=== PATIENT | male | born 1940 | race Caucasian/White ===

== ENCOUNTER 2017-12-31 17:57 | Emergency (ER) | payer MEDICARE ==
[~2017-12-31] VITALS: Ht 182.9 cm; Wt 110.0 kg
[2017-12-31] MEDS ORDERED: RAPAFLO8 MG PO (18:35)
[2017-12-31] MEDS ORDERED: LOSARTAN/HCT1 TA2 PO (18:36)
[2017-12-31] MEDS ORDERED: COREG3.125 MG PO (18:36)
[2017-12-31] MEDS ORDERED: ATORVASTATIN CA10 MG PO (18:37)
[2017-12-31] MEDS ORDERED: TRAZODONE50 MG PO (18:37)
[2017-12-31] MEDS ORDERED: ALPRAZOLAM1 M1 PO (18:38)
[2017-12-31] MEDS ORDERED: HYDROCO/APAP1 T13 PO (18:39)
[2017-12-31 18:59] LABS: URINE BILIRUBIN - DIPSTICK NEGATIVE (NEGATIVE); URINE BLOOD DIPSTICK NEGATIVE (NEGATIVE); URINE COLOR YELLOW; URINE GLUCOSE - DIPSTICK NEGATIVE (NEGATIVE); URINE KETONE NEGATIVE (NEGATIVE); URINE LEUK ESTERASE NEGATIVE (NEGATIVE); URINE NITRITE - DIPSTICK NEGATIVE (Negative); URINE PROTEIN - DIPSTICK 30 mg/dL (NEG-TRACE); URINE UROBILINOGEN - DIPSTICK 0.2 E.U./dL (0.2)
[2017-12-31 19:00] LABS: URINE CLARITY SL CLOUDY; URINE EPITHELIAL CELLS RARE EPI/hpf (0-FEW); URINE MUCUS MODERATE hpf (NONE-FEW)
[2017-12-31 19:36] LABS: HEMATOCRIT 41.4 % (39.0-50.0); HEMOGLOBIN 14.2 g/dl (14.0-18.0); IMMATURE GRANULOCYTES 0.4 % (0.0-1.0); MEAN CELL VOLUME 92.8 fL CALC (80.0-100.0); MEAN CORPUSCULAR HGB 31.8 pG CALC (26.0-32.0); MEAN CORPUSCULAR HGB CONC 34.3 g/L CALC (32.0-36.0); NEUT# 9.05 thou/uL (1.82-7.42); RED BLOOD COUNT 4.46 mill/uL (4.70-6.10); RED CELL DISTRI WIDTH 13.8 % (11.5-15.5)
[2017-12-31 19:47] LABS: INFLUENZA A NONE DETECTED (NONE DETECT); INFLUENZA B NONE DETECTED (NONE DETECT)
[2017-12-31 19:48] LABS: ALBUMIN 4.4 g/dL (3.2-5.0); ALKALINE PHOSPHATASE 80 u/l (38-126); ANION GAP 17 (6-22 (CALC)); BILIRUBIN, TOTAL 1.1 mg/dL (0.0-1.4); BUN 17 mg/dL (8-23); BUN/CREATININE RATIO 13 (12-20 (CALC)); CARBON DIOXIDE 25 mmol/l (22-30); CHLORIDE 98 mmol/l (95-108); CREATININE 1.3 mg/dL (0.7-1.3); GFR 54 ML/MIN (>=60 (CALC)); GFR FOR AFR.AMER. > 60 ML/MIN (>=60 (CALC)); POTASSIUM 3.9 mmol/l (3.5-5.1); SGOT/AST 22 u/l (19-48); SGPT/ALT 25 u/l (11-66); TOTAL PROTEIN 7.9 g/dL (6.3-8.2)
[2017-12-31 19:51] LABS: SODIUM 136 mmol/l (137-146)
[2017-12-31] MEDS ORDERED: CIPROFLOXACN500 MG PO (20:17)
[2017-12-31 20:28] VITALS: BP 149/81
== END 2017-12-31 20:37 | disposition home or self-care (01) ==
LOC: ED 17:57
PROVIDERS: Emergency Medicine
DX: N30.90 Cystitis, unspecified without hematuria (principal); I10 Essential (primary) hypertension; J44.9 Chronic obstructive pulmonary disease, unspecified; I25.2 Old myocardial infarction; Z85.51 Personal history of malignant neoplasm of bladder

== ENCOUNTER 2019-05-17 08:01 | Emergency (ER) | payer MEDICARE ==
[~2019-05-17] VITALS: Ht 182.9 cm; Wt 111.0 kg
[~2019-05-17 08:01] MED LIST: ALPRAZOLAM1 M1 PO; ATORVASTATIN CA10 MG PO; CIPROFLOXACN500 MG PO; COREG3.125 MG PO; HYDROCO/APAP1 T13 PO; LOSARTAN/HCT1 TA2 PO; RAPAFLO8 MG PO; TRAZODONE50 MG PO
[2019-05-17] MEDS ORDERED: PREDNISONE5 MG PO (08:13)
[2019-05-17] MEDS ORDERED: OMEPRAZOLE DR40 MG PO (08:14)
[2019-05-17 09:43] LABS: ALBUMIN 4.2 g/dL (3.2-5.0); ALKALINE PHOSPHATASE 75 u/l (38-126); ANION GAP 15 (6-22 (CALC)); BILIRUBIN, TOTAL 0.8 mg/dL (0.0-1.4); BUN 16 mg/dL (8-23); BUN/CREATININE RATIO 13 (12-20 (CALC)); CARBON DIOXIDE 27 mmol/l (22-30); CHLORIDE 99 mmol/l (95-108); CREATININE 1.3 mg/dL (0.7-1.3); GFR 54 ML/MIN (>=60 (CALC)); GFR FOR AFR.AMER. > 60 ML/MIN (>=60 (CALC)); LIPASE 264 u/l (23-300); POTASSIUM 3.9 mmol/l (3.5-5.1); SGOT/AST 18 u/l (19-48); SODIUM 137 mmol/l (137-146); TOTAL PROTEIN 7.3 g/dL (6.3-8.2)
[2019-05-17 09:45] LABS: URINE BILIRUBIN - DIPSTICK NEGATIVE (NEGATIVE); URINE BLOOD DIPSTICK NEGATIVE (NEGATIVE); URINE COLOR YELLOW; URINE GLUCOSE - DIPSTICK NEGATIVE (NEGATIVE); URINE KETONE NEGATIVE (NEGATIVE); URINE LEUK ESTERASE NEGATIVE (NEGATIVE); URINE NITRITE - DIPSTICK NEGATIVE (Negative); URINE PROTEIN - DIPSTICK NEGATIVE (NEG-TRACE); URINE UROBILINOGEN - DIPSTICK 0.2 E.U./dL (0.2)
[2019-05-17 10:05] LABS: HEMATOCRIT 42.5 % (39.0-50.0); IMMATURE GRANULOCYTES 0.4 % (0.0-5.0); MEAN CELL VOLUME 95.5 fL CALC (80.0-100.0); MEAN CORPUSCULAR HGB 31.5 pG CALC (26.0-32.0); MEAN CORPUSCULAR HGB CONC 32.9 g/L CALC (32.0-36.0); NEUT# 7.03 thou/uL (1.82-7.42); RED BLOOD COUNT 4.45 mill/uL (4.70-6.10); RED CELL DISTRI WIDTH 13.9 % (11.5-15.5)
[2019-05-17 11:40] VITALS: BP 131/68
== END 2019-05-17 11:40 | disposition home or self-care (01) ==
LOC: ED 08:01
PROVIDERS: Family Medicine
DX: K52.9 Noninfective gastroenteritis and colitis, unspecified (principal); R10.31 Right lower quadrant pain; I10 Essential (primary) hypertension
CPT/HCPCS: Q9967

== ENCOUNTER 2020-11-19 15:17 | Emergency (ER) | payer MEDICARE ==
[~2020-11-19] VITALS: Ht 182.9 cm; Wt 113.6 kg
[~2020-11-19 15:17] MED LIST changes: +ALBUTEROL SUL0.083 % IN; +ALLEGRA180 MG PO; +ANORO ELLIPTA 61 AER IN; +ASPIRIN81 MG PO; +CIALIS5 MG PO; +HYDROCHLOROT12.5 MG PO; +LORTAB 1010 MG PO; +METAMUCIL1.7 G1 PO; +MUCINEX600 MG PO; +OMEPRAZOLE DR40 MG PO; +PREDNISONE5 MG PO
[2020-11-19 15:53] LABS: URINE BILIRUBIN - DIPSTICK NEGATIVE (NEGATIVE); URINE BLOOD DIPSTICK NEGATIVE (NEGATIVE); URINE COLOR YELLOW; URINE GLUCOSE - DIPSTICK NEGATIVE (NEGATIVE); URINE KETONE NEGATIVE (NEGATIVE); URINE LEUK ESTERASE TRACE (NEGATIVE); URINE PH 6.5 (4.5-8.0); URINE PROTEIN - DIPSTICK NEGATIVE (NEG-TRACE); URINE UROBILINOGEN - DIPSTICK 0.2 E.U./dL (0.2)
[2020-11-19 15:55] LABS: URINE NITRITE - DIPSTICK NEGATIVE (Negative)
[2020-11-19 16:29] LABS: ALBUMIN 4.2 g/dL (3.2-5.0); BILIRUBIN, TOTAL 0.7 mg/dL (0.0-1.4); CREATININE 1.4 mg/dL (0.7-1.3); TOTAL PROTEIN 8.2 g/dL (6.3-8.2)
[2020-11-19 16:42] LABS: HEMATOCRIT 38.3 % (39.0-50.0); HEMOGLOBIN 12.4 g/dl (14.0-18.0); IMMATURE GRANULOCYTES 0.1 % (0.0-5.0); MEAN CELL VOLUME 90.8 fL CALC (80.0-100.0); MEAN CORPUSCULAR HGB 29.4 pG CALC (26.0-32.0); MEAN CORPUSCULAR HGB CONC 32.4 g/dL CAL (32.0-36.0); NEUT# 4.47 thou/uL (1.82-7.42); RED BLOOD COUNT 4.22 mill/uL (4.70-6.10); RED CELL DISTRI WIDTH 14.6 % (11.5-15.5)
[2020-11-19 16:59] LABS: ACT PARTIAL THROMBO TIME 27.6 SECONDS (20.0-32.5); PROTHROMBIN TIME 10.3 SECONDS (9.0-12.5)
[2020-11-19 19:00] VITALS: BP 121/76
== END 2020-11-19 19:10 | disposition home or self-care (01) ==
LOC: ED 15:17
DX: K80.20 Calculus of gallbladder without cholecystitis without obstruction (principal); K76.89 Other specified diseases of liver; K59.00 Constipation, unspecified; K42.9 Umbilical hernia without obstruction or gangrene; I10 Essential (primary) hypertension; J44.9 Chronic obstructive pulmonary disease, unspecified; G62.9 Polyneuropathy, unspecified; Z85.51 Personal history of malignant neoplasm of bladder

== ENCOUNTER 2020-12-29 16:32 | Emergency (ER) | payer MEDICARE ==
[~2020-12-29] VITALS: Ht 182.9 cm; Wt 105.0 kg
[2020-12-29] MEDS ORDERED: MEDDOSEPAK PO (19:11)
[2020-12-29] MEDS ORDERED: AZITHROMYCIN500 MG PO (19:11)
[2020-12-29 19:16] VITALS: BP 155/97
== END 2020-12-29 19:25 | disposition home or self-care (01) ==
LOC: ED 16:32
DX: J06.9 Acute upper respiratory infection, unspecified (principal); J44.9 Chronic obstructive pulmonary disease, unspecified; I10 Essential (primary) hypertension; G62.9 Polyneuropathy, unspecified; Z20.822 Contact with and (suspected) exposure to COVID-19

== ENCOUNTER 2021-01-01 22:37 | Inpatient (IN) | payer MEDICARE ==
[~2021-01-01] VITALS: Ht 182.9 cm; Wt 104.0 kg
[~2021-01-01 22:37] MED LIST changes: +AZITHROMYCIN500 MG PO; +MEDDOSEPAK PO
--- NOTE | 2021-01-01 22:40 | NUR ---
BY EMS TO ROOM
[2021-01-01 22:54] LABS: HEMATOCRIT 40.1 % (39.0-50.0); HEMOGLOBIN 13.5 g/dl (14.0-18.0); IMMATURE GRANULOCYTES 0.5 % (0.0-5.0); MEAN CELL VOLUME 89.3 fL CALC (80.0-100.0); MEAN CORPUSCULAR HGB 30.1 pG CALC (26.0-32.0); MEAN CORPUSCULAR HGB CONC 33.7 g/dL CAL (32.0-36.0); NEUT# 4.33 thou/uL (1.82-7.42); RED BLOOD COUNT 4.49 mill/uL (4.70-6.10); RED CELL DISTRI WIDTH 14.8 % (11.5-15.5)
--- NOTE | 2021-01-01 23:07 | NUR ---
BREATHING TREATMENT GIVEN BACK TO BACK.
[2021-01-01 23:08] LABS: D-DIMER 2.94 mg/L (0.19-0.60)
[2021-01-01 23:22] LABS: ALBUMIN 4.1 g/dL (3.2-5.0); BILIRUBIN, TOTAL 0.5 mg/dL (0.0-1.4); CREATININE 1.4 mg/dL (0.7-1.3); POTASSIUM 3.2 mmol/l (3.5-5.1); TOTAL PROTEIN 7.6 g/dL (6.3-8.2)
--- NOTE | 2021-01-01 23:40 | NUR ---
AWAITING TEST RESULTS. NAD
[2021-01-02] VITALS (7 sets, daily range): BP systolic 117–162; BP diastolic 68–92
--- NOTE | 2021-01-02 00:30 | NUR ---
REQUESTED JOLANTA FOR RETENTION PER PT.
--- NOTE | 2021-01-02 00:54 | NUR ---
TOLERATED CATH PLACEMENT WELL.
--- NOTE | 2021-01-02 01:28 | NUR ---
RESTING QUIETLY AWAITING CT RESULTS.
--- NOTE | 2021-01-02 02:20 | NUR ---
TELEPHONE REPORT RECEIVED AT 0220 FROM Chet HERNANDEZ RN IN ED. ROOM 278 PREPARED TO RECEIVE PT.
--- NOTE | 2021-01-02 02:30 | NUR ---
Admission Note Report Given to: ROSS PATRICIO Transported by: Wheelchair X Stretcher Transported with: X Nurse Transporter XX Patent IV X O2 Wheel Setter Location: ICU X MS2
--- NOTE | 2021-01-02 02:30 | NUR ---
PT ARRIVES TO UNIT @ 0230 VIA STRETCHER ACCOMPANIED BY Chet HERNANDEZ RN. PT TO ROOM 278. AMBULATORY FROM STRETCHER TO BED.
--- NOTE | 2021-01-02 03:05 | NUR ---
PT UP TO BSC. FRONT OF GOWN WET. REPORTS STOVER IS LEAKING. NO ACTIVE LEAKING NOTED. TUBING SECURED, UNKINKED AND UNOBSTRUCED, DRAINING TO GRAVITY. WILL CON'T TO MONITOR.
--- NOTE | 2021-01-02 03:12 | NUR ---
PT BACK TO BED W/ STAND BY ASSIST FROM Lilo HONG. CLEAN GOWN APPLIED. ADULT BRIEF APPLIED TO BETTER MONITOR ANY POSSIBLE URINARY LEAKS. PT STATES "USUALLY WHEN I HAVE A STOVER I HAVE SPASMS IF I DON'T TAKE AN ANTI-CHOLINERGIC"
--- NOTE | 2021-01-02 07:23 | NUR ---
PT Humaira MIRANDA. VSS. LAYING IN BED. PROJECT FINANCIAL ANALYST TO MONITOR.
--- NOTE | 2021-01-02 07:27 | NUR ---
PT note Patient is screened for intervention and no needs are identified at this time
--- NOTE | 2021-01-02 07:50 | NUR ---
PT LAYING IN BED.ALERT AND ORIENTED. VITALS AND ASSESSMENT DONE. IV PATENT. PEDAL PULSES STRONG BILATERALY. O2 ON 2L AT HOME NOW AT 3L AND SUSTAINING. LUNG SOUNDS, WHEEZES THROUGHOUT LUNG BASES. NO DISTRESS NOTED. CALL LIGHT WITHIN REACH.
[2021-01-02 08:11] LABS: ANION GAP 16 (6-22 (CALC)); BUN 23 mg/dL (8-23); BUN/CREATININE RATIO 19 (12-20 (CALC)); CARBON DIOXIDE 22 mmol/l (22-30); CHLORIDE 96 mmol/l (95-108); CREATININE 1.2 mg/dL (0.7-1.3); GFR 59 ML/MIN (>=60 (CALC)); GFR FOR AFR.AMER. > 60 ML/MIN (>=60 (CALC)); POTASSIUM 3.3 mmol/l (3.5-5.1); SODIUM 131 mmol/l (137-146)
--- NOTE | 2021-01-02 09:20 | NUR ---
Yazan TIWARI APRN AND DR WALLACE AT BEDSIDE DISCUSSING POC
--- NOTE | 2021-01-02 11:20 | NUR ---
SPUTUM SAMPLE OBTAINED. SPECIMEN LABELED WITH THIS WRITERS INITIAL, DATE TIME AND SAMPLE SOURCE.
--- NOTE | 2021-01-02 11:20 | NUR ---
SPINNING MACHINE OPERATOR AT BEDSIDE OBTAINING SCHEDULED ECHO
--- NOTE | 2021-01-02 12:00 | NUR ---
PATIENT AWAKE IN BED. NO DISTRESS NOTED. CALL LIGHT WITHIN REACH.
--- NOTE | 2021-01-02 14:40 | NUR ---
PT REFUSED HOME MEDICATIONS. SAID HE WILL TAKE THEM IN THE MORNING, WHEN HE USUALLY TAKES THEM.
--- NOTE | 2021-01-02 16:00 | NUR ---
PT IN BED. NO DISTRESS NOTED. CALL LIGHT WITHIN REACH.
--- NOTE | 2021-01-02 18:26 | NUR ---
EDUCATED PATIENT ON THE IMPORTANCE OF THE CHANGE OF IV. PATIENT REFUSED AT THIS TIME.
--- NOTE | 2021-01-02 19:00 | NUR ---
REPORT RECEIVED FROM Ludin SOARES RN, CARE OF PT ASSUMED AT THIS TIME.
--- NOTE | 2021-01-02 20:00 | NUR ---
POINT OF CARE GLUCOSE 208mg/dl. COLLECTED BY Enrrique SANDERS CNA.
--- NOTE | 2021-01-02 20:15 | NUR ---
PT LAYING IN BED, NO APPARENT DISTRESS. PHYSICAL ASSESMENT COMPLTED, SEE SHIFT ASSESMENT. PT IS A/OX3 AND AFFECT IS DEPRESSED/ANXIOUS. DENIES THOUGHTS OF SELF-HARM BUT ADMITS TO FINDING LITTLE PLEASURE IN LIFE WITH CURRENT RECENT ILLNESSES. SAT AT BEDSIDE AND ALLOWED PT TIME TO VERBALLY EXPRESS HIS FEELINGS FOR APPROXIMATELY 20 MINUTES. RESPIRATIONS REGULAR AND UNLABORED, LUNG SOUNDS WHEEZY WITH DIMINISHED BASES. SPO2 92% ON 02 @ 3L/MIN VIA NC. REPORTS COUGH IS STILL PRESENT. IS AT BEDSIDE, PULMONARY HYGIENE REVIEWED AND ENCOURAGED. R-FA 18G EMS SITE PATENT, PT ADVISED IT IS DUE TO CHANGE TODAY. PT DECLINES, STATES "IM A HARD STICK AND THIS IS THE BEST IV RAYO HAD SINCE I HAD A CENTRAL LINE." STOVER DRAINING CLEAR YELLOW URINE TO GRAVITY. TUBING SECURED, UNKINKED, AND UNOBSTRUCTED. PT DENIES NEEDS AT THIS TIME. PLAN OF CARE REVIEWED WITH PT. PT VERBALIZES UNDERSTANDING. CALL CONNORS WITHIN REACH, AGREES TO CALL PRN .
--- NOTE | 2021-01-02 21:26 | NUR ---
VERBAL EDUCATION PROVIDED ON MEDICATIONS PRIOR TO ADMINISTRATION. PT VERBALIZES UNDERSTANDING. SCHEDULED MEDICATIONS ADMINISTERED. PRN XANAX AND PRN HYDROCODONE ADMINISTERED REQUESTED BY PT. SEE E-MAR. PT REPORTS DRY NASAL PASSAGES AND THROAT. REQUESTS LOZENGE. WILL CONTACT HEALTH INFORMATION MANAGER PROVIDER. WILL REQUEST 02 HUMIDIFIED BY DIRECTOR OF [facility].
--- NOTE | 2021-01-02 21:30 | NUR ---
ORDER FOR CHLORASEPTIC LOZENGES PRN RECEIVED. REQUEST FOR 02 TO BE HUMIDIFIED VERBALIZED TO Norah TRAN RRT.
--- NOTE | 2021-01-02 22:38 | NUR ---
PT EXPRESSES WISH FOR UNITERRUPTED SLEEP. STATES "I HAVEN'T SLEPT IN 48 HOURS" TO MAXIMIZE PERIODS OF UNINTERRUPTED REST, CARE BUNDLED. Enrrique SANDERS FLY WINDER TAKING VS. Norah TRAN OCC MED PHYSICIAN ADMINISTERING NEB TX ADDING HUMIDITY TO 02. SCHEDULED VIBRAMYCIN ADMINISTERED AND PRN CHLORASEPTIC LOZENGE ADMINISTERED AFTER PROVIDING VERBAL EDUCATION ON MEDICATIONS. PT VERBALIZES UNDERSTANDING OF EDUCATION. SEE E-MAR. PT DENIES FURTHER NEEDS AT THIS TIME, CALL CONNORS WITHIN REACH, AGREES TO CALL PRN.
--- NOTE | 2021-01-02 23:42 | NUR ---
IV SALINE LOCKED AND RE-DRESSED. EXTRA PILLOW PROVIDED PER PT'S REQUEST. DENIES FURTHER NEEDS AT THIS TIME. CALL CONNORS REMAINS WITHIN REACH, AGREES TO CALL PRN.
--- NOTE | 2021-01-03 02:00 | NUR ---
PT APPEARS TO BE SLEEPING COMFORTABLY, LAYING IN BED WITH EYES CLOSED. RESPIRATIONS REGUALR AND UNLABORED, NO APPARENT DISTRESS OR DISCOMFORT. CALL CONNORS REMAINS WITHIN REACH.
[2021-01-03 03:40] VITALS: BP 108/62
[2021-01-03 05:34] LABS: HEMATOCRIT 35.3 % (39.0-50.0); MEAN CELL VOLUME 89.1 fL CALC (80.0-100.0); MEAN CORPUSCULAR HGB 30.3 pG CALC (26.0-32.0); RED BLOOD COUNT 3.96 mill/uL (4.70-6.10); RED CELL DISTRI WIDTH 14.8 % (11.5-15.5)
[2021-01-03 05:50] LABS: ANION GAP 12 (6-22 (CALC)); BUN 31 mg/dL (8-23); BUN/CREATININE RATIO 24 (12-20 (CALC)); CALCULATED LDLCHOLESTEROL 99 mg/dL (62-129 (CALC)); CARBON DIOXIDE 25 mmol/l (22-30); CHLORIDE 95 mmol/l (95-108); CREATININE 1.3 mg/dL (0.7-1.3); GFR 53 ML/MIN (>=60 (CALC)); GFR FOR AFR.AMER. > 60 ML/MIN (>=60 (CALC)); HDL CHOLESTEROL 28 mg/dL (>=40); MAGNESIUM 1.8 mg/dL (1.6-2.3); POTASSIUM 3.3 mmol/l (3.5-5.1); SODIUM 129 mmol/l (137-146); TOTAL TRIGLYCERIDES 108 mg/dl (30-149); VLDL CHOLESTROL 22 mg/dl (0-38 (CALC))
[2021-01-03 05:52] LABS: CHOLESTEROL HDL RATIO 5.3 (<4.4 (CALC)); TOTAL CHOLESTEROL 149 mg/dl (0-199)
--- NOTE | 2021-01-03 06:04 | NUR ---
PT APPEARS TO BE SLEEPING COMFORTABLY, LAYING IN BED WITH EYES CLOSED. RESPIRATIONS REGUALR AND UNLABORED, NO APPARENT DISTRESS OR DISCOMFORT. CALL CONNORS REMAINS WITHIN REACH.
--- NOTE | 2021-01-03 06:42 | NUR ---
PT RESTING COMFORTABLY ION BED, LAYING FLAT. NAD. VSS. CHILDREN'S CHOIR DIRECTOR TO MONITOR.
[2021-01-03 07:14] VITALS: BP 136/75
--- NOTE | 2021-01-03 07:58 | NUR ---
PATIENT SLEEPING UPON ENTERING ROOM. VITALS AND ASSESSMENT PERFORMED. PT ISALERT AND ORIENTED. S1 AND S2 HEARD. BOWEL SOUNDS ACRIVE. PEDAL PULSES BILATERALLY EQUAL AND STRONG. NO DISTRESS NOTED.
--- NOTE | 2021-01-03 12:01 | NUR ---
PT IN BED. NO DISTRESS NOTED. CALL LIGHT WITHIN REACH.
--- NOTE | 2021-01-03 12:46 | NUR ---
PT C NAD. VSS. LAYINHG IN BED, WATCHING TELEVISION. BBS= DIM/CLR AT THIS TIME.
[2021-01-03 15:10] VITALS: BP 137/78
--- NOTE | 2021-01-03 16:02 | NUR ---
NEW IV INTIATED BY PREETHI HAWKINS X1 ATTEMPT. #22 LW, HEALTHY AND PATENT.
--- NOTE | 2021-01-03 16:06 | NUR ---
PT RESTING COMFORTABLY IN BED. NAD. VSS. EXP WHZ PRESENT. NO AUDIBLE IMPROVEMENT C BRONCHODILATOR THERAPY AT THIS TIME. PT C NO COMPLAOINTS. ADMINISTRATION SPECIALIST TO MONITOR.
--- NOTE | 2021-01-03 16:11 | NUR ---
PT LAYING IN BED REQUESTING TO AMBULATE IN HALLWAY. WALKER TO BE OBTAINED. PATIENT ENCOURAGED TO SIT UP IN BED TO EAT DINNER. PATIENT AGREEABLE TO PLAN. CALL LIGHT LEFT WITHIN REACH.
--- NOTE | 2021-01-03 16:35 | NUR ---
PT AMBULATING WITH WALKER AND O2 @3L IN PLACE, THIS AIRPORT RAMP ATTENDANT AND Obie SOARES AT SIDE. PT WITH STEADY GAIT, MILD EXERTIONAL SOB NOTED. PT ASSISTED BACK TO ROOM ASSISTED BACK INTO THE RECLINER. PT TOLERATED ACTIVITY WELL. CALL LIGHT PLACED WITHIN REACH.
--- NOTE | 2021-01-03 19:00 | NUR ---
REPORT RECEIVED FROM Ludin SOARES RN, CARE OF PT ASSUMED AT THIS TIME.
[2021-01-03 20:00] VITALS: BP 144/75
--- NOTE | 2021-01-03 20:00 | NUR ---
PT SITTING IN RECLINER, REQUESTS ASSIST TO RETURN TO BED. PT AMBULATORY TO BED WITH STANDBY ASSIST. GAIT STEADY AND BALANCED. NO SOB NOTED WITH EXERTION. PT TOLERATED TRANSFER WELL. PHYSICAL ASSESMENT COMPLETED. RESPIRATIONS REGULAR AND UNLABORED. LUNG SOUNDS WHEEZY B/L. PRODUCTIVE COUGH WITH THIN CLEAR SPUTUM. PT VERBALIZES HE FEELS HE IS NOT ABLE TO EXPECTORATE SPUTUM EFFECTIVELY. PULMONARY HYGIENE AND INCENTIVE SPIROMETRY REVIEWED AND ENCOURAGED. 02 @ 3L/M VIA NC. SPO2 94%. WILL ALSO REQUEST ORDER FOR ACAPELLA DEVICE. L-WR #22G PATENT AND INFUSING NS @ 30ML/H. STOVER SECURED, UNKINKED AND UNOBSTRUCTED, DRAINING CLEAR YELLOW URINE TO GRAVITY. PT DENIES FURTHER NEEDS AT THIS TIME. PLAN OF CARE REVIEWED. PT VERBALIZES UNDERSTANDING. CALL CONNORS WITHIN REACH, AGREES TO CALL PRN.
--- NOTE | 2021-01-03 20:40 | NUR ---
POINT OF CARE GLUCOSE 241mg/dl. COLLECTED BY Enrrique SANDERS CNA.
--- NOTE | 2021-01-03 21:30 | NUR ---
VERBAL EDUCATION PROVIDED ON MEDICATIONS PRIOR TO ADMINISTRATION. PT VERBALIZES UNDERSTANDING. SCHEDULED MEDICATIONS ADMINISTERED. PRN XANAX, PRN HYDROCODONE, AND PRN CHLORASEPTIC LOZENGE ADMINISTERED REQUESTED BY PT. SEE E-MAR.
--- NOTE | 2021-01-03 23:00 | NUR ---
Norah TRAN VEHICLE OPERATOR TECHNICIAN ADMINISTERING NEB TX. SCHEDULED SOLUMEDROL AND VIBRAMYCIN ADMINISTERED AFTER PROVIDING VERBAL EDUCATION ON MEDICATIONS. PT VERBALIZES UNDERSTANDING OF EDUCATION. SEE E-MAR. PT DENIES FURTHER NEEDS AT THIS TIME, CALL CONNORS WITHIN REACH, AGREES TO CALL PRN.
--- NOTE | 2021-01-04 00:25 | NUR ---
PT APPEARS TO BE SLEEPING COMFORTABLY, LAYING IN BED, EYES CLOSED, RESPIRATIONS REGULAR AND UNLABORED. NO APPARENT DISTRESS. CALL CONNORS REMAINS WITHIN REACH.
[2021-01-04 04:00] VITALS: BP 128/75
[2021-01-04 05:02] LABS: HEMOGLOBIN 12.2 g/dl (14.0-18.0); MEAN CELL VOLUME 89.6 fL CALC (80.0-100.0); MEAN CORPUSCULAR HGB 30.3 pG CALC (26.0-32.0); MEAN CORPUSCULAR HGB CONC 33.9 g/dL CAL (32.0-36.0); RED BLOOD COUNT 4.02 mill/uL (4.70-6.10); RED CELL DISTRI WIDTH 14.7 % (11.5-15.5)
[2021-01-04 05:12] LABS: ANION GAP 11 (6-22 (CALC)); BUN 36 mg/dL (8-23); BUN/CREATININE RATIO 28 (12-20 (CALC)); CARBON DIOXIDE 26 mmol/l (22-30); CHLORIDE 98 mmol/l (95-108); CREATININE 1.3 mg/dL (0.7-1.3); GFR 53 ML/MIN (>=60 (CALC)); GFR FOR AFR.AMER. > 60 ML/MIN (>=60 (CALC)); POTASSIUM 3.8 mmol/l (3.5-5.1); SODIUM 131 mmol/l (137-146)
[2021-01-04 07:00] VITALS: BP 140/87
--- NOTE | 2021-01-04 07:00 | NUR ---
PATIENT LAYING IN BED AT THIS TIME. PATIENT DENIES ANY PAIN. YARN BLEACHING MACHINE OPERATOR DONE AT THIS TIME SEE INTERVENTIONS. LUNGS SOUNDS HAVE WHEEZES NOTED AT THIS TIME. STOVER PATENT AND DRAINING CLEAR YELLOW URINE. PATIENT USING INSENTIVE SPIROMOTER AND REACHING 2500. SIDERAILS ARE UP CALL LIGHT IS WITHIN REACH.
--- NOTE | 2021-01-04 11:42 | NUR ---
MEDICATED PATIENT AT THIS TIME FOR LOWER BACK PAIN WIHT 10MG/325MG OF HYDROCODONE. PATIENT STATES HIS BACK PAIN IS A 5 AT THIS TIME. WILL CONTINUE TO MONITOR.
--- NOTE | 2021-01-04 12:00 | NUR ---
PATIENT LAYING IN BED EATING LUNCH AND STATED HIS PAIN IS NOW ONLY A "3" AND THAT THE PAIN MEDICATION IS HELPING. SIDERAILS ARE UP STOVER REMAINS PATENT AND DRAING YELLOW URINE. CALL LIGHT AND PERSONAL ITEMS WITHIN REACH.
[2021-01-04 15:13] VITALS: BP 142/80
--- NOTE | 2021-01-04 15:50 | NUR ---
PATIENT OUT WALKING IN CROCKER WITH ASSISTANCE. PATIENT ON 3L PORTABLE 02. AFTER PATIENT WALKED BACK TO ROOM SPO2 WAS 89% AT THIS TIME. PATIENT PLACED ON WALL O2 AT THIS TIME AND IS SITTING AT BEDSIDE SIDERAILS ARE UP CALL LIGHT IS WITHIN REACH.
--- NOTE | 2021-01-04 16:15 | NUR ---
PATIENT SITTING AT BEDSIDE AT THIS TIME IV FOUND TO BE LEAKING AND IT WAS REMOVED AT THIS TIME. PATIENT DENIES ANY PAIN OR NEEDS. BREATH SOUNDS ARE WHEEZY AT THIS TIME. CALL LIGHT WITHIN REACH SIDERAILS ARE UP X 2
--- NOTE | 2021-01-04 19:00 | NUR ---
REPORT RECEIVED FROM NURSE MARTÍNEZ. PATIENT RESTING IN BED, TALKING ON THE PHONE, BREATHINH UNLABORED CALL LIGHT AT REACH.
[2021-01-04 19:40] VITALS: BP 139/79
--- NOTE | 2021-01-04 20:00 | NUR ---
PATIENT ALERT ORIENTED ABLE TO MAKE NEEDS KNOWN, WITH ONGPOING IV NS @ 30CC/HR INFUSING WELL ON RT HAND, PATIENT HAVING NON PRODUCTIVE COUGH, RHONCHI/WHEEZING NOTED UPON AUSCULTATION, USES THE INCENTIVE SPIROMETER INSPIRAYORY VOLUME 2500 X 4, REMAINS ON O2 @ 3LPM VIA NC, HAS INDWELLING STOVER CATHETER DRAINING CLEAR YELLOW URINE, SHIFT ASSESSMENT COMPLETED, WILL CONTINUE TO MONITOR, CALL LIGHT AT REACH.
--- NOTE | 2021-01-04 22:57 | NUR ---
PATIENT RESTING WITH AT THIS TIME, BREATHING EVEN UNLABORED OCCASIONAL COUGHING NOTED CALL LIGHT AT REACH.
[2021-01-05 04:29] VITALS: BP 141/83
--- NOTE | 2021-01-05 04:30 | NUR ---
PATIENT RESTING IN BED WITH EYES CLOSED, REMAINS ON O2 @ 3LPM VIA NC, POX 94% BREATHING SHALLOW UNLABORED, VITAL SIGNS TAKEN AND RECORDED, EMPTIED URINE BAG, OUTPUT RECORDED, WILL CONTINUE TO MONITO,CALL LIGHT AT REACH.
--- NOTE | 2021-01-05 07:05 | NUR ---
REPORT RECEIVED FROM ROSS MCDOWELL
[2021-01-05 07:48] VITALS: BP 116/71
--- NOTE | 2021-01-05 07:50 | NUR ---
PT RESTING IN RECLINER,A&O X3;VS OBTAINED AND ASSESSMENT COMPLETED;PT DENIES ANY CURRENT PAIN OR DISCOMFORTS,PAIN SCALE AND REPORTING EDUCATED;RESPIRATIONS SHALLOW ON O2 @ 3L VIA NC,PT IS DEPENDENT ON 2L AT HOME;WHEEZE/DIMINISHED LUNG SOUNDS NOTED;I.S. AT BEDSIDE AND PT EDUCATED ON USE,ENCOURAGED USE 10X PER HOUR;ABDOMEN SOFT ON PALPATION AND ACTIVE IN ALL 4 QUADRANTS;STOVER CATHETER PATENT DRAINING CLEAR/YELLOW URINE TO GRAVITY WITH EASE,STAT LOCK RIGHT THIGH;STRONG PEDAL PULSES;SKIN INTACT;#22G TO RH INFUSING NS @ 30ML/HR,SITE APPEARS HEALTHY;ACCUCHECK 194, PT COVERED WITH SLIDING SCALE INSULIN PER ORDER;PT DENIES ANY ADDITIONAL NEEDS;ENCOURAGED TO CALL FOR ASSISTANCE IF NEEDED;FALL PRECAUTIONS IN PLACE WITH CALL LIGHT IN REACH;WILL CONTINUE TO MONITOR
--- NOTE | 2021-01-05 09:43 | NUR ---
AND AT BEDSIDE DISCUSSING POC.
--- NOTE | 2021-01-05 10:19 | NUR ---
RT AT BEDSIDE ADMINISTERING BREATHING TX.
--- NOTE | 2021-01-05 10:45 | NUR ---
PT RESTING IN SEMI FOWLERS POSITION;RESPIRATIONS REMAIN SHALLOW ON O2 @ 2L VIA NC-O2 DECREASED BY MD;PT OS SATS 93% AT THIS TIME;PT DENIES ANY CURRENT PAIN OR DISCOMFORTS;IV FLUIDS INFUSING WITH EASE AND ABX STARTED PER ORDER;ACCUCHECK 281, PT COVERED WITH SLIDING SCALE INSULIN PER ORDER;PT DENIES ANY ADDITIONAL NEEDS;CALL LIGHT IN REACH;WILL CONTINUE TO MONITOR
--- NOTE | 2021-01-05 11:30 | NUR ---
PT REPORTS GENERALIZED PAIN RATING 5/10 ON THE PAIN SCALE AND REQUESTS PRN PAIN MEDICATION;PT MEDICATED WITH LORTAB 10 PER EMAR;PT DENIES ANY ADDITIONAL NEEDS;CALL LIGHT IN REACH;WILL CONTINUE TO MONITOR
--- NOTE | 2021-01-05 14:19 | NUR ---
RT AT BEDSIDE ADMINISTERING BREATHING TX.
[2021-01-05 15:03] VITALS: BP 129/78
--- NOTE | 2021-01-05 15:55 | NUR ---
PT RESTING IN SEMI FOWLERS POSITION WITH PHYSICAL THERAPY AT BEDSIDE WORKING WITH PT;RESPIRATIONS SHALLOW ON O2 @ 2L VIA NC;PT DENIES ANY CURRENT PAIN OR DISCOMFORTS;IV SITE PATENT INFUSING NS WITH EASE;PT DENIES ANY ADDITIONAL NEEDS AND IS ENCOURAGED TO CALL FOR ASSISTANCE IF NEEDED;CALL LIGHT IN REACH;WILL CONTINUE TO MONITOR
--- NOTE | 2021-01-05 16:14 | NUR ---
Patient did B LE exercises today: supine hip and knee flexion and extension, hip adduction and abduction, SLR, gluteal squeezes, hamstring curls, and ankle AROM for 10 reps x 2 sets with no signs of SOB (presently on 2 liters of oxygen), needing occasional verbal and tactile cuing to carry out activity. Patient also did log rolling bed mobility ADLs and supine to sitting transfers with push off technique for 1 to 3 reps with SBA x 1, requiring occasional verbal and tactile cuing to help decrease trick movements and fall risks.
[2021-01-05 20:16] VITALS: BP 130/81
--- NOTE | 2021-01-05 20:35 | NUR ---
PT IN BED RESTING UPON ARRIVAL TO ROOM. PT ADVISED THIS NURSE THAT HIS IV WAS LEAKING, FLUID NOTED ON THE BED/FLOOR UNDER HIS IV SITE. SALINE FLUSH WAS NOT EFFECTIVE IN ATTEMPTING TO SAVE IV SITE, ATTEMPTED TO BREAK DOWN DRESSING TO CHEK CONNECTION,ATTEMPT UNSUCCESSFUL D/T TAPE WAS UNABLE TO BREAKDOWN DRESSING. IV SITE TO R HAND DISCONTINUED. ATTEMPTED TO START ANOTHER IV SITE X 3 WITHOUT SUCESS. ICU NURSE CAME TO UNIT AND TRIED X 2 WITHOUT SUCCESS. ER NURSE CAME TO FLOOR AND WAS ABLE TO START IV IN RIGHT HAND. IV FLUIDS RESTARTED. BREATHING IS EVEN AND UNLABORED PT REPORTS PRODUCTIVE CAOUGH THIS EVENING, WHITE THIN SMALL AOUNT OF MUCOUS, REPORTS PAIN TO HIS LOWER BACK, MEDICATED PER ORDER. SAFETY PRECUATIONS IN PLACE, BED IN LOWEST POSITION, CALL LIGHT WITHIN REACH. WILL MONITOR
--- NOTE | 2021-01-06 01:27 | NUR ---
PT RESTING COMFORTABLY AT THIS TIME. NO COMPLAINTS VOICED. NO S/S OF DISTRESS. BREATHING IS EVEN AND UNLABORED. SAFETY -PRECAUTIONS IN PLACE, BED IN LOW POSITION, CALL LIGHT WITHIN REACH. WILL MONITOR
[2021-01-06 05:18] VITALS: BP 145/85
--- NOTE | 2021-01-06 05:38 | NUR ---
PT RESTING QUIETLY IN BED WITH EYES CLOSED, NO COMPLAINTS VOICED. NO S/S OF DISTRESS. BREATHING EVEN AND UNLABORED. SAFETY PRECAUTIONS IN PLACE. WILL MONITOR
--- NOTE | 2021-01-06 06:45 | NUR ---
PT RESTING COMFORTABLY IN BED C NAD. VSS. PEDIATRIC CLINICAL DIETICIAN TO MONITOR.
[2021-01-06 07:59] VITALS: BP 138/83
--- NOTE | 2021-01-06 07:59 | NUR ---
PT RESTING IN SEMI FOWLERS POSITION. PT IS A/O X3. ASSESSMENT AND VITALS COMPLETED. BP 138/83, HR 79, O2 94% ON 2L NC. PT IS HOME DEPENDENT. RESPIRATIONS ARE EVEN AND UNLABORED WITH NO DISTRESS NOTED. LUNG SOUNDS ARE DIMINISHED WITH EXP. WHEEZING. BOWEL SOUNDS ARE ACTIVE, LAST RPORTED BM 01/03/21, PT REFUSES ANY THING TO ASSIST AT THIS TIME. HEART RHYTHM NORMAL. RADIAL AND PEDAL PULSES STRONG. #22G HR INFUSING WITH IVF PER ORDER, SITE REMAINS HEALTHY AND PATENT. STOVER CATHATER IN PLACE, TUBING PATENT. I.S AT BEDSIDE. PT INSTRUCTED OF USE. PT COMPLAINS OF 4/10 BACK PAIN. REFUSES ANY THING TO ASSIST AT THIS TIME. ALL SAFTEY PRECAUTIONS ARE IN PLACE WITH CALL LIGHT IN REACH. WILL CONTINUE TO MONITOR.
[2021-01-06 08:46] VITALS: BP 138/83
--- NOTE | 2021-01-06 09:01 | NUR ---
DR WALLACE AT BEDSIDE
[2021-01-06] MEDS ORDERED: IPRATROPIU0.5 MG/3 M IN ×2 (10:35→12:06)
[2021-01-06] MEDS ORDERED: MEDDOSEPAK PO ×2 (10:36→12:25)
[2021-01-06] MEDS ORDERED: NEBULIZE4 IN (10:38)
--- NOTE | 2021-01-06 11:05 | NUR ---
STOVER CATHATER REMOVED PER MD ORDER. PT TOLERATED WELL. EDUCATED PT ON NEED TO VOID. PT VERBALIZED UNDERSTANDING. WILL CONTINUE TO MONITOR.
--- NOTE | 2021-01-06 11:44 | NUR ---
PT EDUCATED ON DC INSTRUCTIONS AND NEW NEBULIZER AND NEB TREATMENTS. PT VERBALIZED UNDERSTANDING. #22G IN RH INFUSING WITH ANTIBIOTICS. SITE APEARS HEALTHY AND PATENT. PT DENIES OF ANY NEEDS AT THIS TIME. ALL SAFETY PRECAUTIONS ARE IN PLACE WITH CALL LIGHT IN REACH. WILL CONTINUE TO MONITOR.
--- NOTE | 2021-01-06 13:10 | NUR ---
Discharge instructions given. Patient verbalizes understanding of same. Discharged in stable condition via Wheelchair to Home with staff. All belongings sent with pt. PT DC HOME IN STABLE CONDITION ACCOMAPINED BY OLINDA DE JESUS AND . PT DC WITH ALL DC INSTURCTIONS AND HOME O2
--- NOTE | 2021-01-06 13:10 | NUR ---
IV REMOVED WITH CATHATER STILL INTACT. AT BEDSIDE TO [facility] HOME.
--- NOTE | 2021-01-13 10:58 | NUR ---
Pneumonia post discharge follow up call completed today, `. {t states he is doing well. No fever, chills, or SOB. O2 sats running aroung 94-9/ Pt. is weaning off home oxygen. Home Health nurse is coming twice a week to follow patient. Pt. completed prescibed discharge medications. No concerns or questions at this time.
== END 2021-01-06 13:10 | disposition home or self-care (01) | DRG 190 ==
LOC: ED 22:37 → ED-I 01-02 01:43 → ED 01-02 01:57 → MS2 01-02 01:58
PROVIDERS: Family Medicine; Nurse Practitioner; ADMIT Internal Medicine; ATTEND Internal Medicine
PROC: 0T9B70Z Drainage of Bladder with Drainage Device, Via Natural or Artificial Opening (ICD-10-PCS; principal; 2021-01-02)
DX: J44.1 Chronic obstructive pulmonary disease with (acute) exacerbation (principal); J96.21 Acute and chronic respiratory failure with hypoxia; I10 Essential (primary) hypertension; E11.40 Type 2 diabetes mellitus with diabetic neuropathy, unspecified; N13.9 Obstructive and reflux uropathy, unspecified; F41.9 Anxiety disorder, unspecified; Z99.81 Dependence on supplemental oxygen; Z87.891 Personal history of nicotine dependence; Z85.51 Personal history of malignant neoplasm of bladder; Z20.822 Contact with and (suspected) exposure to COVID-19
CPT/HCPCS: G0378; J1650; Q9967

== ENCOUNTER 2021-11-02 10:30 | Emergency (ER) | payer MEDICARE ==
[~2021-11-02] VITALS: Ht 182.9 cm; Wt 94.0 kg
[~2021-11-02 10:30] MED LIST changes: +IPRATROPIU0.5 MG/3 M IN; +NEBULIZE4 IN
[2021-11-02 13:12] VITALS: BP 160/98
== END 2021-11-02 13:21 | disposition home or self-care (01) ==
LOC: ED 10:30
PROC: 0HQ1XZZ Repair Face Skin, External Approach (ICD-10-PCS; principal; 2021-11-02)
DX: S01.81XA Laceration without foreign body of other part of head, initial encounter (principal); S01.112A Laceration without foreign body of left eyelid and periocular area, initial encounter; S50.312A Abrasion of left elbow, initial encounter; S80.212A Abrasion, left knee, initial encounter; I10 Essential (primary) hypertension; G62.9 Polyneuropathy, unspecified; J44.9 Chronic obstructive pulmonary disease, unspecified; N15.1 Renal and perinephric abscess; Z85.51 Personal history of malignant neoplasm of bladder; W01.0XXA Fall on same level from slipping, tripping and stumbling without subsequent striking against object, initial encounter; Y92.481 Parking lot as the place of occurrence of the external cause

== ENCOUNTER 2021-11-09 10:51 | Emergency (ER) | payer MEDICARE ==
[~2021-11-09] VITALS: Ht 182.9 cm; Wt 93.0 kg
[2021-11-09 11:05] VITALS: BP 148/99
[2021-11-09 12:01] VITALS: BP 128/73
[2021-11-09 13:01] VITALS: BP 152/90
[2021-11-09 13:41] VITALS: BP 152/90
== END 2021-11-09 13:41 | disposition home or self-care (01) ==
LOC: ED 10:51
DX: S01.112D Laceration without foreign body of left eyelid and periocular area, subsequent encounter (principal); I10 Essential (primary) hypertension; G62.9 Polyneuropathy, unspecified; J44.9 Chronic obstructive pulmonary disease, unspecified; X58.XXXD Exposure to other specified factors, subsequent encounter

== ENCOUNTER 2024-07-02 20:26 | Emergency (ER) | payer MEDICARE ==
[~2024-07-02] VITALS: Ht 182.9 cm; Wt 95.3 kg
[2024-07-03] MEDS ORDERED: AMOXICILLIN & POT CLAVULANATE 875 MG/TAB PO ONE (00:05)
[2024-07-03] MEDS ORDERED: BENZONATATE 200 MG/CAP PO ONE (00:05)
[2024-07-03] MEDS ORDERED: DEXAMETHASONE 2 MG/TAB TAB PO ONE (00:05)
[2024-07-03] MEDS ORDERED: AMOX/K CLAV875 M1 PO (00:42)
[2024-07-03] MEDS ORDERED: BENZONATATE200 MG PO (00:42)
[2024-07-03] MEDS ORDERED: DECADRON4 MG PO (00:42)
[2024-07-03 01:19] VITALS: BP 136/78
== END 2024-07-03 01:19 | disposition home or self-care (01) ==
LOC: ED 20:26
DX: J10.1 Influenza due to other identified influenza virus with other respiratory manifestations (principal); I10 Essential (primary) hypertension; J44.9 Chronic obstructive pulmonary disease, unspecified; G62.9 Polyneuropathy, unspecified; Z99.81 Dependence on supplemental oxygen; Z85.51 Personal history of malignant neoplasm of bladder; Z20.822 Contact with and (suspected) exposure to COVID-19; Z87.891 Personal history of nicotine dependence